=== PATIENT | male | born 1940 | race Native Hawaiian/Other Pacific Islander ===

== ENCOUNTER 2018-01-03 14:19 | Outpatient (CLI) | payer OTHER | END 2018-01-03 17:00 | disposition home or self-care (01) | LOC: MRI 14:19 | DX: M54.41 Lumbago with sciatica, right side (principal) ==

== ENCOUNTER 2022-10-14 10:39 | Inpatient (IN) | payer OTHER ==
[~2022-10-14] VITALS: Ht 180.3 cm; Wt 70.1 kg
[2022-10-14 10:39] VITALS: BP 152/73; TEMP 98
[2022-10-14 11:47] LABS: PLATELET COUNT 418 K/uL (142-355)
[2022-10-14 11:57] LABS: POTASSIUM 4.9 mmol/L (3.6-5.2)
[2022-10-14 14:39] VITALS: BP 144/86; TEMP 97.9
[2022-10-14 17:53] VITALS: BP 144/86; TEMP 97.9; BMI 21.3
[2022-10-14 19:33] VITALS: BP 138/53; TEMP 97.6
[2022-10-14] MEDS ORDERED: METFORMIN HYDR500 M1 PO (20:42)
[2022-10-14] MEDS ORDERED: ASPIRIN LOW DOS81 MG PO (20:43)
[2022-10-14] MEDS ORDERED: LISI10TA11 PO (20:43)
[2022-10-14 23:34] VITALS: BP 135/47; TEMP 98.2
[2022-10-15 00:39] VITALS: BP 122/64; TEMP 98.2; BMI 23.1
[2022-10-15 04:00] VITALS: BP 137/47; TEMP 98.1
[2022-10-15 05:15] LABS: PLATELET COUNT 291 K/uL (142-355)
[2022-10-15 05:41] LABS: POTASSIUM 3.8 mmol/L (3.6-5.2)
[2022-10-15 07:35] VITALS: BP 125/47; TEMP 98.2
[2022-10-15 11:50] VITALS: BP 115/49; TEMP 98.5
[2022-10-15 16:41] VITALS: BP 116/50; TEMP 99
[2022-10-15 20:17] VITALS: BP 154/73; TEMP 98.4
[2022-10-16 00:02] VITALS: BP 170/74; TEMP 98.6
[2022-10-16 03:56] LABS: PLATELET COUNT 276 K/uL (142-355)
[2022-10-16 04:00] VITALS: BP 157/93; TEMP 97.6
[2022-10-16 04:11] LABS: POTASSIUM 3.9 mmol/L (3.6-5.2)
[2022-10-16 08:00] VITALS: BP 149/55; TEMP 97.2
[2022-10-16 12:00] VITALS: BP 111/55; TEMP 98.6
[2022-10-16 16:00] VITALS: BP 189/75; TEMP 97.3
[2022-10-16 20:08] VITALS: BP 190/81; TEMP 97.2
[2022-10-17] VITALS: BP 199/72; TEMP 97.2
[2022-10-17 08:00] VITALS: BP 147/46; TEMP 97.7
[2022-10-17 09:27] LABS: PLATELET COUNT 265 K/uL (142-355)
[2022-10-17 09:33] LABS: POTASSIUM 3.4 mmol/L (3.6-5.2)
[2022-10-17 12:00] VITALS: BP 170/62; TEMP 98.3
[2022-10-17 16:00] VITALS: BP 163/61; TEMP 98
[2022-10-17 20:00] VITALS: BP 159/56; TEMP 98.3
[2022-10-18 04:00] VITALS: BP 151/62; TEMP 98.4
[2022-10-18 08:20] VITALS: BP 164/59; TEMP 97
[2022-10-18 12:29] VITALS: BP 87/39; TEMP 97.6
[2022-10-18 13:45] VITALS: BP 93/37
[2022-10-18 16:00] VITALS: BP 119/37; TEMP 97.3
[2022-10-18 20:00] VITALS: BP 125/46; TEMP 98.2
[2022-10-19] VITALS: BP 114/45; TEMP 98.6
[2022-10-19 03:50] VITALS: BP 117/50; TEMP 98.4
[2022-10-19 08:00] VITALS: BP 116/54; TEMP 98.3
[2022-10-19] MEDS ORDERED: QUET25TA2 PO (10:06)
[2022-10-19] MEDS ORDERED: METO-837 PO (10:06)
[2022-10-19] MEDS ORDERED: INSUINJ20 SC (10:07)
[2022-10-19] MEDS ORDERED: LIPITOR10 MG PO (10:08)
[2022-10-19] MEDS ORDERED: ASPIRIN 81 LOW81 MG PO (10:08)
[2022-10-19 12:00] VITALS: BP 110/33; TEMP 98.3
== END 2022-10-19 15:25 | DRG 884 ==
LOC: ED 10:39 → MED/SURG 14:00
PROVIDERS: ADMIT Emergency Medicine; ATTEND Internal Medicine
DX: F03.90 Unspecified dementia, unspecified severity, without behavioral disturbance, psychotic disturbance, mood disturbance, and anxiety (principal); I48.92 Unspecified atrial flutter; N17.8 Other acute kidney failure; N17.9 Acute kidney failure, unspecified; R41.82 Altered mental status, unspecified; R53.1 Weakness; Z91.81 History of falling; I10 Essential (primary) hypertension; R62.7 Adult failure to thrive; E11.69 Type 2 diabetes mellitus with other specified complication; E86.0 Dehydration; R26.2 Difficulty in walking, not elsewhere classified; R27.8 Other lack of coordination
CPT/HCPCS: 36415; 80053; 80143; 80179; 80307; 80320; 81000; 82533; 82607; 84439; 84443; 85027; 87635; 93005; 96360; 96361; 99284; U0003